=== PATIENT | female | born 1950 | race Caucasian/White ===

== ENCOUNTER → 2018-02-18 | Day surgery (SDC) | payer BC ==
[~2018-02-18] MED LIST: AMLO5TAB7 PO; IV RINGERS,LACTATED 1000ML 1,000 ML IV SCH; LIDOCAINE 1% PF 2 ML VIAL. ID PRN; MIDAZOLAM HCL/PF 2 MG/2 ML VIAL. IV PRN; PROPOFOL 20 ML IV ONE; TIMO10DR5 OP; fentaNYL PF VIAL 100 MCG/2 ML VIAL IV PRN
[2018-02-18 08:56] VITALS: BP 117/66
== END | disposition home or self-care (01) ==
LOC: SURG 07:06
PROVIDERS: ATTEND Internal Medicine Gastroenterology
DX: Z12.11 Encounter for screening for malignant neoplasm of colon (principal); K64.0 First degree hemorrhoids; I10 Essential (primary) hypertension; J45.909 Unspecified asthma, uncomplicated; Z88.5 Allergy status to narcotic agent; Z98.890 Other specified postprocedural states
CPT/HCPCS: G0121; J2704; 45378

== ENCOUNTER → 2020-03-08 | Outpatient (CLI) | payer BC, OTHER ==
[2018-02-18 08:56] VITALS: BP 117/66
[~2020-03-08] MED LIST changes: +AMLO5TAB10 PO; -AMLO5TAB7 PO; -IV RINGERS,LACTATED 1000ML 1,000 ML IV SCH; -LIDOCAINE 1% PF 2 ML VIAL. ID PRN; -MIDAZOLAM HCL/PF 2 MG/2 ML VIAL. IV PRN; -PROPOFOL 20 ML IV ONE; -fentaNYL PF VIAL 100 MCG/2 ML VIAL IV PRN
--- NOTE | 2020-03-08 07:53 | RAD ---
ABDOMEN COMPLETE Realtime grayscale images of the abdomen with color and pulsed doppler utilized as appropriate. History: RUQ PAIN Comparison: None. Findings: The liver is normal in appearance and echogenicity. No intrahepatic biliary ductal dilatation or mass is seen. No gallstones, pericholecystic fluid, or gallbladder wall thickening are seen. The common bile duct is normal in diameter and measures 0.3 cm. Portal Vein flow is hepatopetal. The pancreas is normal in appearance, although the tail is not well visualized. The aorta and IVC are normal diameter where visualized. The right kidney is normal in appearance, measuring 10.5 cm in length. The left kidney is normal in appearance, measuring 10.2 cm in length. No hydronephrosis or perinephric fluid are seen bilaterally. The spleen is normal in appearance and measures 9.0 cm. Impression: Unremarkable ultrasound examination of the abdomen. Electronically signed by: Sammy Balderas MD (03/08/2020 7:50 AM) [id number]
--- NOTE | 2020-03-08 17:27 | RAD ---
EXAMINATION: Bilateral screening mammogram, 03/08/2020 12:00 AM CLINICAL INDICATION: 69-year-old woman presenting for screening mammogram. COMPARISON: Screening mammogram 01/29/2019 at 01/28/2018 TECHNIQUE: Digital bilateral full-field CC and MLO views, and CC and MLO tomosynthesis views of the breasts were obtained. CAD was utilized. FINDINGS: The breasts contain scattered areas of fibroglandular density. There is no mass, suspicious calcification, or architectural distortion. IMPRESSION: 1. No mammographic evidence of malignancy. 2. BI-RADS 1: Negative. 3. Routine annual screening mammogram is recommended in 1 year. The patient will receive a reminder letter by mail when she is due for her next exam. Electronically signed by: Stephanie Hussein MD (03/08/2020 5:23 PM) [id number]
== END ==
LOC: US 06:57
PROVIDERS: ATTEND Family Medicine
DX: Z12.31 Encounter for screening mammogram for malignant neoplasm of breast (principal); R10.11 Right upper quadrant pain
CPT/HCPCS: 76700; 77067

== ENCOUNTER → 2021-03-27 | Outpatient (CLI) | payer OTHER ==
[2018-02-18 08:56] VITALS: BP 117/66
[~2021-03-27] MED LIST changes: +AMLO-186 PO; -AMLO5TAB10 PO
--- NOTE | 2021-03-27 17:31 | RAD ---
Bilateral digital screening mammogram to include digital breast tomosynthesis (3-D mammography) 03/27 CLINICAL HISTORY: Screening study. Digital MLO and CC mammograms of both breasts were obtained. Additionally digital breast tomosynthesi s images (3-D mammography) of both breasts in the CC and MLO projections were obtained. Comparison studies are dated 03/08/2020, 01/29/2019 and 01/28/2018. The breast parenchyma is composed of scattered fibroglandular densities which can obscure a lesion on mammography (breast density B). No spiculated mass is seen. No malignant appearing calcification or area of architectural distortion is noted. Digital breast tomosynthesis images demonstrate no spiculated mass. No malignant appearing calcificat ion is seen. Impression: BI-RADS Category 1: Negative. There is no mammographic evidence of malignancy. Routine y early screening mammography is recommended for follow-up. This examination was reviewed with the aid of computer-aided detection. A mammogram does not have 100% sensitivity and therefore a negative imaging study should not delay fu rther work up of a suspicious abnormality. Patient information is entered into the reminder system with a target due date for the next screening mammogram of 03/27/2022. "Our facility is accredited by the [employer] Mammography Program." Electronically signed by: Filemon Hawley MD (03/27/2021 5:28 PM) [id number]
== END ==
LOC: MAMMO 10:11
PROVIDERS: ATTEND Family Medicine
DX: Z12.31 Encounter for screening mammogram for malignant neoplasm of breast (principal)
CPT/HCPCS: 77063; 77067